=== PATIENT | male | born 1935 | race Caucasian/White ===

== ENCOUNTER 2021-03-09 13:36 | Outpatient (CLI) | payer MEDICARE | END 2021-03-09 13:37 | disposition home or self-care (01) | LOC: CSHMRI 13:36 | PROVIDERS: ATTEND Psychiatry & Neurology Neurology | DX: G30.9 Alzheimer's disease, unspecified (principal); I67.89 Other cerebrovascular disease | CPT/HCPCS: 70553; 82565 ==

== ENCOUNTER 2021-07-07 13:49 | Outpatient (CLI) | payer MEDICARE ==
[~2021-07-07 13:49] MED LIST: Magnevist 469MG/ML 20 ML VIAL ONE
== END 2021-07-07 13:50 | disposition home or self-care (01) ==
LOC: CSHMRI 13:49
PROVIDERS: ATTEND Psychiatry & Neurology Neurology
DX: G30.9 Alzheimer's disease, unspecified (principal); G31.9 Degenerative disease of nervous system, unspecified; R90.82 White matter disease, unspecified
CPT/HCPCS: 70553